=== PATIENT | female | born 1980 | race Caucasian/White ===

== ENCOUNTER 2018-08-05 07:33 | Emergency (ER) | payer BC ==
[~2018-08-05] VITALS: Ht 157.5 cm; Wt 81.6 kg
[~2018-08-05 07:33] MED LIST: Z.0.ZANTAC 7575 MG MT; Z.1.AMOXICILLIN500 M MT
[2018-08-05] MEDS ORDERED: ATENOLOL50 MG PO (07:59)
[2018-08-05] MEDS ORDERED: ASPIRIN 81 MG CHEW TAB PO ONE (08:15)
[2018-08-05] MEDS ORDERED: LORAZEPAM 1 MG TAB PO ONE (08:15)
[2018-08-05 08:37] LABS: BASOPHILS % 0.2 % (0.0-1.0); EOSINOPHILS # (AUTO) 0.1 (0.0-0.4); EOSINOPHILS % 1.1 % (0.0-6.0); HEMATOCRIT 41.8 % (34.2-44.1); HEMOGLOBIN 13.3 g/dL (12.0-16.0); LYMPHOCYTES # (AUTO) 3.8 (1.0-3.2); LYMPHOCYTES % 40.6 % (18.0-39.1); MEAN CORPUSCULAR HEMOGLOBIN 27.3 pg (28-32); MEAN CORPUSCULAR HGB CONC 31.8 g/dL (31-35); MEAN CORPUSCULAR VOLUME 85.8 fL (81-99); MONOCYTES # (AUTO) 0.3 (0.2-0.8); NEUTROPHILS # (AUTO) 4.9 (2.1-6.9); NEUTROPHILS % 53.2 % (38.7-80.0); PLATELET COUNT 495 x10e3/uL (140-360); RED BLOOD COUNT 4.87 x10e6/uL (3.6-5.1); RED CELL DISTRIBUTION WIDTH 13.2 % (11.7-14.4)
[2018-08-05 08:48] LABS: INR 0.97; PARTIAL THROMBOPLASTIN TIME 27.1 seconds (23.8-35.5); PROTHROMBIN TIME 13.4 seconds (11.9-14.5)
[2018-08-05 08:51] LABS: ALANINE AMINOTRANSFERASE 15 IU/L (0-55); ALBUMIN 3.5 g/dL (3.5-5.0); ALBUMIN/GLOBULIN RATIO 0.8 (0.8-2.0); ALKALINE PHOSPHATASE 89 IU/L (40-150); ANION GAP 12.5 mmol/L (8-16); BLOOD UREA NITROGEN 14 mg/dL (7-26); BUN/CREATININE RATIO 15 (6-25); CALCIUM 8.9 mg/dL (8.4-10.2); CARBON DIOXIDE 23 mmol/L (22-29); CHLORIDE 104 mmol/L (98-107); CREATINE KINASE 56 IU/L (29-168); CREATININE, SERUM 0.93 mg/dL (0.57-1.11); EST GLOMERULAR FILTRATION RATE > 60 ML/MIN (60-); GLUCOSE 177 mg/dL (74-118); POTASSIUM 3.5 mmol/L (3.5-5.1); SODIUM 136 mmol/L (136-145)
--- NOTE | 2018-08-05 10:28 | Diagnostic Imaging Report ---
EXAM: CHEST SINGLE (NOT PORTABLE) DATE: 08/05/2018 8:03 AM INDICATION: Chest pain, shortness of breath COMPARISON: None FINDINGS: Lines and tubes: None Heart size normal. No focal pulmonary opacity, pleural effusion or pneumothorax. Upper abdomen unremarkable. No acute bony abnormality. Mild thoracolumbar scoliosis. IMPRESSION: No evidence for acute disease. Signed by: Dr. Cesar Hilario M.D. on 08/05/2018 10:24 AM
[2018-08-05 11:13] VITALS: BP 130/95
== END 2018-08-05 11:21 | disposition home or self-care (01) ==
LOC: ER 07:33
DX: F41.1 Generalized anxiety disorder (principal); I10 Essential (primary) hypertension; Z88.6 Allergy status to analgesic agent; Z88.1 Allergy status to other antibiotic agents; Z88.5 Allergy status to narcotic agent; Z88.8 Allergy status to other drugs, medicaments and biological substances
CPT/HCPCS: 36415; 71045; 80053; 82550; 82553; 83036; 84484; 85025; 85610; 85730; 93005; 99284

== ENCOUNTER 2021-07-07 08:52 | Observation (INO) | payer BC, OTHER ==
[~2021-07-07] VITALS: Ht 157.5 cm; Wt 103.4 kg
[~2021-07-07 08:52] MED LIST changes: +ATENOLOL50 MG PO
[2021-07-07] MEDS ORDERED: SODIUM CHLORIDE 0.9% 1000ML 1,000 ML IV STA ×2 (09:17→10:48)
[2021-07-07 09:30] LABS: BASOPHILS # (AUTO) 0.1 (0.0-0.1); BASOPHILS % 0.2 % (0.0-1.0); EOSINOPHILS # (AUTO) 0.2 (0.0-0.4); EOSINOPHILS % 1.1 % (0.0-6.0); HEMATOCRIT 43.6 % (34.2-44.1); LYMPHOCYTES # (AUTO) 2.9 (1.0-3.2); LYMPHOCYTES % 13.9 % (18.0-39.1); MEAN CORPUSCULAR HEMOGLOBIN 28.2 pg (28-32); MEAN CORPUSCULAR HGB CONC 32.1 g/dL (31-35); MEAN CORPUSCULAR VOLUME 87.7 fL (81-99); MONOCYTES # (AUTO) 0.5 (0.2-0.8); MONOCYTES % 2.4 % (4.4-11.3); NEUTROPHILS # (AUTO) 16.5 (2.1-6.9); NEUTROPHILS % 80.6 % (38.7-80.0); PLATELET COUNT 453 x10e3/uL (140-360); RED BLOOD COUNT 4.97 x10e6/uL (3.6-5.1); RED CELL DISTRIBUTION WIDTH 13.4 % (11.7-14.4)
[2021-07-07 09:56] LABS: ALANINE AMINOTRANSFERASE 24 IU/L (0-55); ALBUMIN 3.4 g/dL (3.5-5.0); ALBUMIN/GLOBULIN RATIO 0.8 (0.8-2.0); ALKALINE PHOSPHATASE 79 IU/L (40-150); ANION GAP 12.6 mmol/L (8-16); BLOOD UREA NITROGEN 14 mg/dL (7-26); BUN/CREATININE RATIO 13 (6-25); CALCIUM 9.1 mg/dL (8.4-10.2); CARBON DIOXIDE 24 mmol/L (22-29); CHLORIDE 104 mmol/L (98-107); CREATINE KINASE 44 IU/L (29-168); CREATININE, SERUM 1.04 mg/dL (0.57-1.11); EST GLOMERULAR FILTRATION RATE 58 ML/MIN (60-); GLUCOSE 175 mg/dL (74-118); MAGNESIUM 1.9 MG/DL (1.3-2.1); POTASSIUM 3.6 mmol/L (3.5-5.1); SODIUM 137 mmol/L (136-145)
[2021-07-07 09:58] LABS: INR 0.99
[2021-07-07 09:59] LABS: PARTIAL THROMBOPLASTIN TIME 24.6 seconds (23.8-35.5)
[2021-07-07] MEDS ORDERED: IOPAMIDOL 370 MG/ML 200 ML INFUS..BTL INJ ONE (10:39)
[2021-07-07] MEDS ORDERED: SODIUM CHLORIDE 0.9% 50ML 0 ML ONE (10:39)
[2021-07-07] MEDS ORDERED: PIPERACILLIN/TAZOBACTAM 3.375 GM in SODIUM CHLORIDE 0.9% 50ML 50 ML IV ONE (10:45)
[2021-07-07] MEDS ORDERED: ENOXAPARIN INJ 80 MG/0.8 ML SYR SC SCH (11:15)
[2021-07-07] MEDS ORDERED: ONDANSETRON HCL INJ 2MG/ML 2ML 2 MG/ML VIAL IV ONE (11:30)
[2021-07-07] MEDS ORDERED: ONDANSETRON HCL INJ 2MG/ML 2ML 2 MG/ML VIAL IV PRN (11:30)
[2021-07-07 11:41] LABS: CLARITY,URINE CLEAR (CLEAR); COLOR,URINE YELLOW (YELLOW)
[2021-07-07 11:42] LABS: BACTERIA,URINE RARE /HPF; KETONES,URINE NEGATIVE (NEGATIVE); LEUKOCYTE ESTERASE ,URINE NEGATIVE (NEGATIVE); NITRITE,URINE NEGATIVE (NEGATIVE); PROTEIN,URINE DIPSTICK 2+ (NEGATIVE); RBC,URINE 0-5 /HPF (0-5); URINE UROBILINOGEN 0.2 mg/dL (0.2 - 1); WBC,URINE (MAN) 0-5 /HPF (0-5)
[2021-07-07 11:43] LABS: EPITHELIAL CELLS,URINE FEW /LPF
[2021-07-07 12:42] VITALS: BP 133/69
[2021-07-07 13:00] VITALS: BP 133/69
[2021-07-07] MEDS ORDERED: CLONIDINE HCL0.3 MG PO (14:21)
[2021-07-07] MEDS ORDERED: LISINOPRIL10 MG PO (14:21)
[2021-07-07] MEDS ORDERED: LEVOTHYROXINE50 MCG PO (14:21)
[2021-07-07 16:00] VITALS: BP 132/68
[2021-07-07 17:19] LABS: CREATINE KINASE MB 1.1 ng/mL (0-5.0)
[2021-07-07 20:00] VITALS: BP 130/70
[2021-07-07] MEDS: FAMOTIDINE 20 MG/2 ML VIAL IV SCH (20:47)
[2021-07-07] MEDS ORDERED: ACETAMINOPHEN 325 MG TAB PO PRN (22:00)
[2021-07-07] MEDS ORDERED: ACETAMINOPHEN 325 MG TAB ONE (22:10)
[2021-07-07 23:10] LABS: CREATINE KINASE MB 1.4 ng/mL (0-5.0)
[2021-07-08] VITALS: BP 123/71
[2021-07-08 04:00] VITALS: BP 122/66
[2021-07-08 05:23] LABS: BASOPHILS # (AUTO) 0.1 (0.0-0.1); BASOPHILS % 0.4 % (0.0-1.0); EOSINOPHILS # (AUTO) 0.4 (0.0-0.4); EOSINOPHILS % 3.3 % (0.0-6.0); HEMATOCRIT 35.6 % (34.2-44.1); HEMOGLOBIN 11.5 g/dL (12.0-16.0); LYMPHOCYTES # (AUTO) 2.8 (1.0-3.2); MEAN CORPUSCULAR HEMOGLOBIN 28.7 pg (28-32); MEAN CORPUSCULAR HGB CONC 32.3 g/dL (31-35); MEAN CORPUSCULAR VOLUME 88.8 fL (81-99); MONOCYTES # (AUTO) 0.6 (0.2-0.8); MONOCYTES % 4.7 % (4.4-11.3); NEUTROPHILS # (AUTO) 7.8 (2.1-6.9); NEUTROPHILS % 66.8 % (38.7-80.0); PLATELET COUNT 357 x10e3/uL (140-360); RED BLOOD COUNT 4.01 x10e6/uL (3.6-5.1); RED CELL DISTRIBUTION WIDTH 13.5 % (11.7-14.4)
[2021-07-08 05:54] LABS: ALANINE AMINOTRANSFERASE 25 IU/L (0-55); ALBUMIN 2.8 g/dL (3.5-5.0); ALBUMIN/GLOBULIN RATIO 0.8 (0.8-2.0); ALKALINE PHOSPHATASE 60 IU/L (40-150); BLOOD UREA NITROGEN 10 mg/dL (7-26); BUN/CREATININE RATIO 13 (6-25); CALCIUM 8.3 mg/dL (8.4-10.2); CARBON DIOXIDE 23 mmol/L (22-29); CHLORIDE 108 mmol/L (98-107); CHOL/HDL RATIO 7.2 (3.0-3.6); CHOLESTEROL 172 MD/DL (0-199); CREATININE, SERUM 0.76 mg/dL (0.57-1.11); EST GLOMERULAR FILTRATION RATE 83 ML/MIN (60-); GLUCOSE 112 mg/dL (74-118); HDL CHOLESTEROL 24 MG/DL (40-60); SODIUM 138 mmol/L (136-145); TRIGLYCERIDES 699 MG/DL (0-149)
[2021-07-08 06:10] LABS: FREE T4 (FREE THYROXINE) 0.89 ng/dL (0.8-1.8); THYROID STIMULATING HORMONE 2.605 uIU/mL (0.350-4.940)
[2021-07-08] MEDS: FAMOTIDINE 20 MG/2 ML VIAL IV SCH (07:00)
[2021-07-08 08:14] VITALS: BP 134/73
[2021-07-08 08:30] VITALS: BP 134/73
[2021-07-08] MEDS ORDERED: BISACODYL 5 MG TAB EC PO ONE (10:30)
[2021-07-09] MEDS ORDERED: POLYETHYLENE GLYCOL 3350 17 GM PACK PO SCH (09:00)
== END 2021-07-08 12:38 | disposition home or self-care (01) ==
LOC: ER 09:20 → ERHOLD 11:29 → INTOOBSV 11:29 → MED/SURG 13:01
PROVIDERS: ADMIT Internal Medicine; ATTEND Internal Medicine
DX: R55 Syncope and collapse (principal); I10 Essential (primary) hypertension; E03.9 Hypothyroidism, unspecified; Z88.1 Allergy status to other antibiotic agents; Z88.8 Allergy status to other drugs, medicaments and biological substances; D72.829 Elevated white blood cell count, unspecified; E86.0 Dehydration
CPT/HCPCS: 36415; 71045; 78580; 80053; 80061; 81001; 82550; 82553; 83036; 83605; 83735; 83880; 84439; 84443; 84484; 84702; 85025; 85379; 85610; 85730; 87040; 87086; 93005; 93306; 93880; 99285; A9540; G0378; J1650; J2543; J7030; Q9967; U0002